=== PATIENT | male | born 1965 | race Caucasian/White ===

== ENCOUNTER 2019-04-25 08:13 | Emergency (ER) | payer OTHER | END 2019-04-25 09:23 | disposition home or self-care (01) | LOC: FTE 09:23 | DX: T24.132A Burn of first degree of left lower leg, initial encounter (principal); L92.9 Granulomatous disorder of the skin and subcutaneous tissue, unspecified; L97.921 Non-pressure chronic ulcer of unspecified part of left lower leg limited to breakdown of skin; V29.9XXA Motorcycle rider (driver) (passenger) injured in unspecified traffic accident, initial encounter; X19.XXXA Contact with other heat and hot substances, initial encounter; Z59.0 Homelessness | CPT/HCPCS: 99282; Z7502 ==

== ENCOUNTER 2019-04-27 14:39 | Emergency (ER) | payer SELFPAY, OTHER | END 2019-04-27 20:04 | disposition left against medical advice (07) | LOC: E/R 14:39 | DX: Z53.21 Procedure and treatment not carried out due to patient leaving prior to being seen by health care provider (principal) ==